=== PATIENT | male | born 1955 | race Caucasian/White ===

== ENCOUNTER → 2023-08-16 13:42 | Outpatient (REF) | payer OTHER, SELFPAY ==
--- NOTE | 2023-08-15 08:33 | WATCHMAN ---
Documented by User: STEPHANIE Kapoor 09/10/23 13:50
Watchman
Wathcman Procedure
Referred by:: Pierre
Date of Referral:: 08/03/23
[id number] Score
Age in Years (65=0, 65-74=1, >/=75=2): 65-74
Sex (Female=+1): Male
Congestive Heart Failure History (Yes=+1): No
Hypertension History (Yes=+1): Yes
Stroke/TIA/Thromboembolism History (Yes=+2): No
Vascular Disease History (Yes=+1): No
Diabetes Mellitus (Yes=+1): No
Score: 2
Anticoagulation Recommendations: Recommend anticoagulation (as validated in nonvalvular fib)
HASBLED Score
Hypertenstion (uncontrolled >160mmHG systolic): Yes
Renal disease (dialysis, transplant, Cr >2.26mg/dL or >200umol/L): No
Liver disease (cirrhosis or bilirubin >2x normal w/ AST/ALT/AP >3x normal: No
Stroke history: No
Prior major bleeding or predisposition to bleeding: Yes
Labile INR(unsable/high INRs,time in therapeutic range <60%): No
Age >65: Yes
Medication usage predisposing to bleeding(ASA, NSAIDS): No
Alcohol use (>/= 8 drinks/week): No
Score: 3
Risk: Alternatives to anticoagulation should be considered: Patient is at high risk for major bleeding
Physician Visits
Design Printing Machine Setter:: Pierre
Date of Visit:: 08/03/23
Primary Cleaning Associate:: Pierre
Date of Visit:: 08/03/23
PCP:: Venecia Hess
Plan
Plan:: 08/03/2023: Patient seen and evaluated by Dr. Jay for Watchman procedure.
08/06/2023: Patient asked to get BMP to assess kidney function prior to CT scan. Patient scheduled for watchman CT scan on 08/16/2023. Allowed for and answered questions.
08/15/2023: Labs completed and GFR is WNL. Lab results faxed to CT department.
09/04/2023: Reviewed patient with the heart team in the SDM meeting. The team discussed borderline anatomy and soft indication for watchman. Dr. Jay and Dr. Bowie will discuss plan of care with patient t/c ablation and OAC. Will continue to
follow.
09/10/2023: Updated patient on Heart Team discussion. Allowed for and answered questions. Will call to follow up with Dr. Bowie about ablation options.

Documented by User: STEPHANIE Morris 09/04/23 07:35
Watchman
[id number] Score
Score: 2
Anticoagulation Recommendations: Recommend anticoagulation (as validated in nonvalvular fib)
HASBLED Score
Score: 3
Risk: Alternatives to anticoagulation should be considered: Patient is at high risk for major bleeding
Plan
Plan:: 08/03/2023: Patient seen and evaluated by Dr. Jay for Watchman procedure.
08/06/2023: Patient asked to get BMP to assess kidney function prior to CT scan. Patient scheduled for watchman CT scan on 08/16/2023. Allowed for and answered questions.
08/15/2023: Labs completed and GFR is WNL. Lab results faxed to CT department.
09/04/2023: Reviewed patient with the heart team in the SDM meeting. The team discussed borderline anatomy and soft indication for watchman. Dr. Jay and Dr. Bowie will discuss plan of care with patient t/c ablation and OAC. Will continue to follow.
== END ==
LOC: RAD 13:42
PROVIDERS: ATTENDING PHYSICIAN Internal Medicine Interventional Cardiology; FAMILY PHYSICIAN Family Medicine
DX: I48.0 Paroxysmal atrial fibrillation (principal)
CPT/HCPCS: 75572; Q9967

== ENCOUNTER 2023-10-09 06:23 | Day surgery (SDC) | payer OTHER, SELFPAY ==
[2023-10-09] VITALS (10 sets, daily range): BP systolic 146–154; BP diastolic 81–92; BMI 26.3
[2023-10-09] MEDS: LOW STRENGTH ASPIRIN 324 MG PO (07:13)
[2023-10-09 08:18] LABS: ACT-LR - POC 287 Seconds (116-155)
--- NOTE | 2023-10-09 11:29 | ITS.CL.CATH ---
Blindstitch Lapel Padder - Catheterization
Cardiac Catheterization
Procedure Report:
LEFT HEART CATHETERIZATION
Date of Procedure: October 09, 2023
Referring: Vivienne Jay MD, [facility], [facility]
PROCEDURES:
1. Left heart catheterization, coronary angiogram.
2. Ultrasound-guided access
3. Physiologic functional testing with IFR
INDICATION: �Mr Chaves is a 67-year-old gentleman with past medical history of hypertension, hyperlipidemia, coronary artery disease status post OM1 stent in September 2020 with 2.5 x 18 mm Shalini Xience V drug-eluting stent postdilated using a 2.5 x 20
mm NC balloon to 14 judith, mild to moderate carotid artery stenosis, former tobacco abuse, synovial cyst in his back resulting in chronic back pain, cannabis dependence, paroxysmal atrial flutter on long-term anticoagulation with Eliquis�with
intermittent hemorrhoidal bleeds, mild aortic stenosis, significantly elevated coronary artery calcium score with ongoing exertional left-sided atypical chest discomfort now being referred for a left heart catheterization to rule out obstructive
CAD. He was being referred for a watchman and underwent a watchman protocol CT which coincidentally noted significantly elevated calcium score of 2307 with 1950 of that in the left coronary system and 365 in the right coronary system.
ACCESS: Right radial artery, 6 Green[place]ic sheath, under ultrasound guidance
HEMODYNAMICS : (mmHg)
AO (s/d) : 146/79
LV (s/d) : 164/7
LVEDP : 26
CORONARY FINDINGS
DOMINANCE: Right
LEFT MAIN: The left main artery is a large-caliber vessel which gives rise to the left anterior descending artery and the left circumflex artery. There is distal tapering up to 40 to 50% which is heavily calcified. This was interrogated using
physiologic functional testing with IFR which was negative at 0.93.
LEFT ANTERIOR DESCENDING: The left anterior descending artery is a medium to large caliber vessel which gives rise to 1 major diagonal branch as it courses through the anterior interventricular groove and wraps around the apex. There is mild
diffuse atherosclerotic plaque.
CIRCUMFLEX: The left circumflex artery is a medium to large caliber vessel which gives rise to 1 major obtuse marginal branch. Prior OM stent from 2020 is widely patent. There is 30-40% ostial left circumflex stenosis.
RIGHT CORONARY ARTERY: The right coronary artery is a medium caliber vessel which gives rise to the right posterior descending artery with minimal luminal irregularities.
HEMODYNAMIC ASSESSMENT OF THE DISTAL LEFT MAIN WITH A FinarioO OMNI WIRE: The origin of the left coronary system was cannulated with a 6 Fr JL4 guide catheter. Intravenous heparin was administered and the ACT was followed during the procedure. Two
hundred micrograms of intracoronary nitroglycerin was given through the guide catheter. A [place] Omni wire was advanced to the guide catheter tip and normalized in the ascending aorta with disengagement of the JL 4 guide catheter. The Omni wire
was then carefully manipulated across the stenosis in the distal left main with the iFR above the ischemic threshold serially measuring 0.94, 0.93 and 0.95. The Omni wire was then pulled back to the guide catheter where the Pd/Pa measured 1.0
confirming no baseline drift in pressure readings
SEDATION: 42 minutes of procedural sedation was utilized. An independent medical support assistant was present to assist with and help manage the patient's level of consciousness and physiologic status.
RADIATION SUMMARY: Fluoro Time (min): 5.5, Dose (mGy): 364.0, DAP (Gy.cm2) : 26.2
Closure Device: Vascular band over right radial artery, 10 cc of air.
CONCLUSIONS
1. Moderate coronary artery disease with IFR negative distal left main 40-50% stenosis (IFR of 0.93).
2. Widely patent obtuse marginal stent from 2020.
3. Significantly elevated LVEDP.
RECOMMENDATIONS
1. Goal-directed medical therapy for optimization of lipids and daily progression of obstructive coronary artery disease. Initiate low-dose diuretic given significantly elevated LVEDP.
2. Continued encouragement for smoking cessation.
3. He will keep his appointments as scheduled with pulmonary medicine as well as electrophysiology in regards to A-fib ablation.
4. Wean right radial band per protocol. Resume Eliquis starting tonight as long as no issues at the right radial site.
5. Aggressive management of cardiovascular risk factors.
Vivienne Jay MD, FACC, [facility]
== END 2023-10-09 11:30 | disposition home or self-care (01) ==
LOC: CATH 06:23
PROVIDERS: ATTENDING PHYSICIAN Internal Medicine Interventional Cardiology; FAMILY PHYSICIAN Family Medicine
DX: I35.0 Nonrheumatic aortic (valve) stenosis (principal); I48.0 Paroxysmal atrial fibrillation; I25.10 Atherosclerotic heart disease of native coronary artery without angina pectoris; Z95.5 Presence of coronary angioplasty implant and graft; I10 Essential (primary) hypertension; E78.5 Hyperlipidemia, unspecified; F12.21 Cannabis dependence, in remission; Z87.891 Personal history of nicotine dependence; Z79.01 Long term (current) use of anticoagulants
CPT/HCPCS: 99152; 99153; C1894; C1769; 76937; 85347; 93458; 93571; Q9967

== ENCOUNTER 2023-12-07 05:58 | Day surgery (SDC) | payer OTHER, SELFPAY ==
[2023-11-19 07:47] VITALS: BMI 25.5
[2023-11-19 08:37] LABS: % Basophils 0.8 % (0-2); % Eosinophils 4.9 % (0-6); % Immature Granulocytes 0.3 % (0-0.5); % Lymphocytes 24.3 % (20.5-51.1); % Monocytes 6.6 % (1.7-9.3); % Neutrophils 63.1 % (42.2-75.2); Absolute Basophils 0.1 10^3/uL (0-0.2); Absolute Eosinophils 0.4 10^3/uL (0-0.7); Absolute Lymphocytes 1.7 10^3/uL (1.2-3.4); Absolute Monocytes 0.5 10^3/uL (0.1-0.6); Absolute Neutrophils 4.5 10^3/uL (1.4-6.5); Hematocrit 42.9 % (39.0-52.0); Hemoglobin 14.7 g/dL (13.0-18.0); INR 1.25; Mean Corp Hgb Conc. 34.3 g/dL (33.0-37.0); Mean Corpuscular Hgb 31.6 pg (27.0-31.0); Mean Corpuscular Volume 92.3 fL (80.0-94.0); Mean Platelet Volume 9.4 fL (7.4-10.4); Nucleated Red Blood Cells % 0 % (-); PT 15.6 Sec (11.4-14.6); Platelet Count 274 10^3/uL (130-400); Red Blood Cell Count 4.65 10^6/uL (4.70-6.10); Red Cell Dist. Width 13.5 % (11.5-14.5); White Blood Cell Count 7.2 10^3/uL (4.8-10.8)
[2023-11-19 08:46] LABS: ALT (SGPT) 16 U/L (0-50); AST (SGOT) 22 U/L (17-59); Albumin 4.4 g/dl (3.5-5.0); Alkaline Phosphatase 59 U/L (38-126); Blood Urea Nitrogen 15 mg/dl (9-20); Calcium 9.8 mg/dl (8.4-10.2); Carbon Dioxide 31 mmol/L (22-30); Chloride 106 mmol/L (98-107); Estimated Creatinine Clearance 87 ml/min; Glucose 113 mg/dl (70-99); Magnesium 2.1 mg/dl (1.6-2.3); Potassium 4.1 mmol/L (3.5-5.1); Sodium 143 mmol/L (135-145); Total Bilirubin 0.5 mg/dl (0.2-1.3); Total Protein 7.3 g/dl (6.3-8.2); eGFR > 60.00
--- NOTE | 2023-11-20 16:54 | W.PN.UPDATE ---
Update Note
Progress Note Update
Pulmonary nodule on CT-faxed to PCP--LM for patient
[2023-12-07] VITALS (17 sets, daily range): BP systolic 138–198; BP diastolic 79–158; BMI 25.1
[2023-12-07] MEDS: ZESTRIL 20 MG PO (12:05)
[2023-12-07] MEDS: COREG 25 MG PO (12:05)
--- NOTE | 2023-12-07 12:23 | ITS.CL.ABL ---
Windows Desktop Engineer - Ablation
Ablation
Procedure Report:
Primary Insulator Helper: Vivienne Jay MD
Procedure Date: 12/07/2023
Procedure
Electrophysiology Study, with RA, CS pacing and recording
Radiofrequency Ablation of CTI for Counterclockwise Cavotricuspid Isthmus-dependent Right Atrial Flutter
Three-dimensional Electroanatomic Mapping and Navigation
Patient History
See H&P for complete details
Patient is a pleasant 68-year-old male with a past medical history significant for hypertension, LVH, mild aortic stenosis, CAD status post PCI September 2020, left carotid stenosis, chronic back pain, THC use, paroxysmal typical atrial flutter.
Patient presented for elective electrophysiology study and ablation for typical atrial flutter. Underwent preprocedure CT scan which demonstrated no left atrial appendage thrombus.
Method
After informed consent was obtained, the patient was brought to the EP lab in a post-absorptive, non-sedated state. A peripheral IV was in place. Continuous electrocardiography, blood pressure and pulse oximetry monitoring were initiated and
cardioversion / defibrillator patch electrodes were positioned on the chest in an anterior-posterior orientation. Sedation was administered via the anesthesia services. A time-out was called. Local anesthesia was administered at the right and left
femoral vein access sites. Vascular access was achieved using modified Seldinger technique, and 3 sheaths were placed.
The patient entered the room in sinus rhythm. A multipolar catheter were advanced to the coronary sinus. A mapping / ablation catheter was used to record and pace. Intracardiac ultrasound (ICE) was utilized for structural assessment and monitoring.
Tachycardia induction was attempted but unsuccessful. Three-dimensional electroanatomic mapping was utilized. Catheter ablation in the right atrium was performed as described below. Ablation continued until a line was complete from the
tricuspid valve annulus to the IVC-RA junction. Clockwise and counterclockwise trans-isthmus times were determined, and RA activation patterns confirmed bidirectional block (>50% increase in trans-isthmus time). Interval measurements in NSR were
made. A waiting period was observed, after which the procedure was concluded.
At the end of the procedure, all catheters and sheaths were removed, hemostasis was assured in the standard fashion, and the patient was taken to the recovery area in stable condition.
Baseline Intervals:
Rhythm: sinus rhythm
FL: 170 ms
QRS: 97 ms
QT: 441 ms
QTc: 426 ms
A-A: 1071 ms
R-R: 1071 ms
Post-Procedure Intervals:
FL: 172 ms
QRS: 83 ms
QT: 358 ms
QTc: 463 ms
A-A: 600 ms
R-R: 600 ms
AVWB: 430 ms
AVNERP: 600/270 ms
No arrhythmia was inducible post ablation
Mapping and Ablation
Utilizing electroanatomic three-dimensional navigation, a 3.5 mm tip Claim Map[employer]apse Wireless SE irrigated ablation catheter was advanced to the right atrium with the assistance of an11.5 Fr Agilis steerable long sheath. An electroanatomic three-dimensional map
of the right atrium was constructed, with careful attention to anatomic landmarks, including the coronary sinus, IVC-RA and SVC-RA junction, tricuspid valve annulus, and region of the His bundle electrogram. Due to respiratory obstruction and
significant respiratory variation during mapping, patient was placed under general anesthesia by anesthesia services to improve respiratory stability. On ICE, patient noted to have large/pronounced TA with short, deep crypt CTI and large prominent
eustachian ridge this was consistent medial to lateral.
An ablation line was created from the tricuspid annulus to the IVC in the 6:00 position ([place] clock). Power was titrated between 30 and 40 Adam. Careful monitoring of impedance and contact force during ablation. Patient remained in sinus rhythm
during procedure. The line was completed during CS pacing, and bidirectional block was achieved. The ablation line was mapped to ensure widely spaced double potentials, and after a minute waiting period, bidirectional block persisted. ICE imaging
demonstrated no change to pre-procedure imaging, no evidence of pericardial effusion.
Ablation Summary
Total ablation time: 7 minutes 19 seconds
Estimated Blood Loss
<5 mL
Fluoroscopy Time 2.2
Radiation Dose 6.4 mGy
DAP 0.9
Complications
None
Conclusions
1. Successful ablation of the cavotricuspid isthmus with bidirectional block.
2. No arrhythmia induced pre- or post procedure
Recommendations
- Anticipate discharge home today if meeting clinical metrics
- Bedrest with straight leg precautions for four hours
- Resume anticoagulation tonight if patient/groins stable
- Continue remaining home medications as indicated
- Follow-up in clinic in 4-6 weeks or sooner if needed
Tae Reveles,
Clinical Cardiac Electrophysiology
cc: Vivienne Jay MD; Venecia Hess MD
[2023-12-07] MEDS: PROCARDIA XL (EXTENDED RELEASE) 60 MG PO (15:56)
[2023-12-07] MEDS: PROCARDIA XL (EXTENDED RELEASE) 30 MG PO (15:57)
--- NOTE | 2023-12-07 16:16 | W.PN.UPDATE ---
Update Note
Progress Note Update
68 yo WM s/p CTI flutter ablation (same day). He feels good, no cp, sob, jorje diet, voiding, EKG SR, R fem site c/d/i, L fem site with slow track ooze even after F08 suture removed, continues to ooze. Dr. Reveles injected groin with 5cc Lidocaine/Epi
and manual pressure held for 20min. His bp has been running high, he was given his am meds and nifedipine. He will resume his Eliquis later tonight at 9pm. Activity restrictions reviewed. He will f/u Dr. Jay in 2 mo. We will monitor for any
further bleeding and d/c home after 5:30pm.
Procedure
Electrophysiology Study, with RA, CS pacing and recording
Radiofrequency Ablation of CTI for Counterclockwise Cavotricuspid Isthmus-dependent Right Atrial Flutter
Three-dimensional Electroanatomic Mapping and Navigation
Patient History
See H&P for complete details
Patient is a pleasant 68-year-old male with a past medical history significant for hypertension, LVH, mild aortic stenosis, CAD status post PCI September 2020, left carotid stenosis, chronic back pain, THC use, paroxysmal typical atrial flutter.
Patient presented for elective electrophysiology study and ablation for typical atrial flutter. Underwent preprocedure CT scan which demonstrated no left atrial appendage thrombus.
== END 2023-12-07 17:27 | disposition home or self-care (01) ==
LOC: CATH 05:58
PROVIDERS: ATTENDING PHYSICIAN Internal Medicine Cardiovascular Disease; FAMILY PHYSICIAN Family Medicine; OTHER PHYSICIAN Internal Medicine Interventional Cardiology
DX: I11.9 Hypertensive heart disease without heart failure (principal); I25.10 Atherosclerotic heart disease of native coronary artery without angina pectoris; I48.0 Paroxysmal atrial fibrillation; E78.5 Hyperlipidemia, unspecified; J84.10 Pulmonary fibrosis, unspecified; M48.00 Spinal stenosis, site unspecified; M19.90 Unspecified osteoarthritis, unspecified site; K76.0 Fatty (change of) liver, not elsewhere classified; G47.00 Insomnia, unspecified; R73.03 Prediabetes; Z79.01 Long term (current) use of anticoagulants
CPT/HCPCS: 93662; C2630; C1766; C1894; C1759; 36415; 75572; 76937; 80053; 83735; 85025; 85610; 86850; 86900; 86901; 93005; 93653; Q9967

== ENCOUNTER 2024-01-01 12:52 | Emergency (ER) | payer OTHER, SELFPAY ==
[2024-01-01] VITALS (15 sets, daily range): BP systolic 120–161; BP diastolic 72–110
[2024-01-01] MEDS: NSS 500 IV ×2 (14:16→15:52)
[2024-01-01 14:28] LABS: Hematocrit 48.5 % (39.0-52.0); Mean Corp Hgb Conc. 35.1 g/dL (33.0-37.0); Mean Corpuscular Hgb 32.1 pg (27.0-31.0); Mean Corpuscular Volume 91.7 fL (80.0-94.0); Mean Platelet Volume 9.7 fL (7.4-10.4); Platelet Count 227 10^3/uL (130-400); Red Blood Cell Count 5.29 10^6/uL (4.70-6.10); Red Cell Dist. Width 13.4 % (11.5-14.5); White Blood Cell Count 9.5 10^3/uL (4.8-10.8)
[2024-01-01] MEDS: CARDIZEM 20 MG IV (14:32)
[2024-01-01] MEDS: CARDIZEM 125 IV (14:32)
[2024-01-01 14:46] LABS: ALT (SGPT) 18 U/L (0-50); AST (SGOT) 26 U/L (17-59); Albumin 4.6 g/dl (3.5-5.0); Alkaline Phosphatase 58 U/L (38-126); Blood Urea Nitrogen 20 mg/dl (9-20); Calcium 10.2 mg/dl (8.4-10.2); Carbon Dioxide 24 mmol/L (22-30); Chloride 106 mmol/L (98-107); Glucose 102 mg/dl (70-99); Potassium 4.1 mmol/L (3.5-5.1); Sodium 140 mmol/L (135-145); Total Bilirubin 1.2 mg/dl (0.2-1.3); Total Protein 7.4 g/dl (6.3-8.2); eGFR > 60.00
--- NOTE | 2024-01-01 14:56 | ED.GENMED ---
History of Present Illness
General
Chief Complaint: Heart Rate Problem
Source: patient
Exam Limitations: none
Time Seen by Provider: 01/01/24 13:59
Nursing documentation reviewed up to this point in time: agreed with
History of Present Illness
History of Present Illness:
Patient with history atrial fibrillation on Eliquis, status post cardiac ablation on December 06, presents to ED secondary to recurrent chest 'pounding sensation', starting last night. Patient also reports associated dizziness with shortness of breath
when ambulating this morning. Denies nausea or vomiting. Denies chest pain. Denies fever or chills. Denies recent change in medications or diet. Denies recent illness. Patient states that he feels as though he is back in atrial fibrillation
rhythm.
Past History
Past History
ED Past Medical History: CAD, HTN, Hypercholesterolemia, Other and Other
ED Past Surgical History: Cardiac and Other
Patient has exhibited threatening behavior?: No
PSI?: No
Social History
Tobacco: Non-smoker
Alcohol: Occasional
Drug: Marijuana
Personal:
Living: with family
Employment: Retired
Family History
Family History: CAD
Review of Systems
Review of Systems
Allergies reviewed?: Yes
All Other Systems: ROS reviewed and negative except as documented in HPI and ROS
Constitutional: Reports no symptoms
EENT: Reports no symptoms
Respiratory: Reports trouble breathing
Cardiac: Reports palpitations; Denies chest pain or syncope
ABD/GI: Reports no symptoms
Musculoskeletal: Reports no symptoms
Skin: Reports no symptoms
Neurological: Reports dizzy; Denies headache or weakness
Phy Exam
Physical Exam
Physical Exam:
Physical Exam
General: no apparent distress, not acutely ill. afebrile.
Head: nc/at. eomi
Neck: supple. no meningeal signs.
Heart: irregular, tachycardic, no murmur. equal radial pulses.
Lungs: no acute respiratory distress. clear bilaterally
Abdomen: normal bowel sounds. not tender.
Neuro: alert and oriented. no focal neurological deficits
Skin: no rash
Psychiatric: well kept. interactive and cooperative
Extremities: no edema. no calf tenderness.
Course
Orders/Labs/Results
Orders:
Orders
01/01/24
Electrocardiogram (*1) Stat
Reason for Study: Chest Pain
Comment: DONE NO ORDER ENTERED
01/01/24 12:56
Electrocardiogram (*1) Urgent
Reason for Study: Chest Pain
EKG- Treatment ONCE
01/01/24 14:08
0.9% Sodium Chloride 500 ml [Nss] 500 ml IV BOLUS
01/01/24 14:09
Diltiazem HCl [Cardizem] 20 mg IV NOW STA
01/01/24 14:15
Complete Blood Count/No Diff Urgent
Comprehensive Metabolic Panel Urgent
Magnesium Urgent
TSH Urgent
Diltiazem 125 mg/125 ml Nss [Cardizem] 125 mg in 125 ml IV PER PROTOCOL
Initial dose in mg/hr, then titrate:: 5
Titrate to keep:: Heart rate 80-100 bpm
Titrate by mg/hr:: 5 mg/hr
Frequency of titrations (minutes):: 15
Maximum dose in mg/hr:: 15
01/01/24 15:14
Electrocardiogram (*1) Urgent
Reason for Study: QTc Monitoring
EKG- Treatment ONCE
01/01/24 15:43
Propofol [Diprivan] 20 ml .ROUTE .STK-MED
01/01/24 15:52
0.9% Sodium Chloride 500 ml [Nss] 500 ml IV BOLUS
01/01/24 15:53
Propofol [Diprivan] 60 mg IV NOW STA
01/01/24 16:22
Electrocardiogram (*1) Urgent
Reason for Study: QTc Monitoring
EKG- Treatment ONCE
Abnormal Lab Results
01/01/24
14:15
MCH 32.1 H pg
(27.0-31.0)
Glucose 102 H mg/dl
(70-99)
01/01/24 14:15
01/01/24 14:15
Vital Signs
Initial and Last Documented VS:
Initial Vital Signs
Temp Pulse Resp BP Pulse Ox
98.2 F 105 20 159/110 96
01/01/24 12:53 01/01/24 12:53 01/01/24 12:53 01/01/24 12:53 01/01/24 12:53
Last Documented Vital Signs
Temp Pulse Resp BP Pulse Ox
98.3 F 71 15 145/82 94
01/01/24 15:53 01/01/24 17:00 01/01/24 17:00 01/01/24 17:00 01/01/24 17:00
Procedures
Moderate Sedation
ASA Risk Score: Class I
Chart and allergies reviewed: Yes
Consent for anesthesia obtained: Yes
Time out completed (validating right patient & procedure): Yes
Moderate Sedation Start Time(when first medication is given): 15:53
History of difficult intubation: No
Airway free of obstruction: Yes
Patient has a gag reflex: Yes
Patient is able to open mouth: Yes
Patient has no dentures: Yes
Patient has no loose teeth: Yes
Medication administered by Provider during Moderate Sedation: IV Propofol (mg)
Total dose administered: 60
Time drug administered: 15:53
Moderate Sedation Procedure End Time: 16:03
Cardioversion
Indication:: Other (rapid a.flutter)
Performed by:: Donte Díaz M.D.
Synchronized?: Yes
Energy Used: 200 joules
Number of attempts: 1
Successful?: Yes
Complications: None
ASA Risk Score: Class I
Any reaction or bad outcome to prior sedation/anesthesia?: No history of a reaction
Sedation level to be attained: moderate
Chart and allergies reviewed: Yes
Patient reassessed prior to sedation: Yes
Time out completed at (validating right patient & procedure): 15:53
History of difficult intubation: No
Airway free of obstruction: Yes
Patient has a gag reflex: Yes
Patient is able to open mouth: Yes
Patient has no dentures: Yes
Patient has no loose teeth: Yes
Medication administered by Provider during Moderate Sedation: IV Propofol (mg)
Total dose administered: 60
Time drug administered: 15:53
Start Time: 15:53
Stop Time: 16:03
MDM/Problems Addressed
MDM/Problems Addressed:
History and exam consistent with symptomatic rapid atrial flutter. Patient initially treated with IV fluids, Cardizem bolus and Cardizem infusion. Unfortunately, although heart rate improved, patient remains in atrial flutter rhythm.
After discussion, decision made to perform cardioversion.
Procedural consent on the chart.
Cardioversion successful, confirmed via repeat EKG.
Discussed with (cardiology) - will f/u as outpatient.
Pt will be discharged home in stable condition, to the care of his family.
ED Attending Note
-
Portions of this chart may have been created with voice recognition software.� Occasional wrong word or��sound alike� substitutions may have occurred due to the inherent limitations of voice recognition software.
Discharge Plan
Departure
Patient Disposition: Home (Routine Discharge)
Date of Disposition: 01/01/24
Time of Disposition: 16:04
Patient with high blood pressure during this ER visit?: Yes
Discharge Problem:
Atrial flutter with rapid ventricular response
Instructions: Atrial Flutter (DC)
Prescriptions:
No Action
carvedilol [Coreg] 25 MG tablet
25 mg PO BID
lisinopril 20 MG tablet
20 mg PO BID
sildenafil [Viagra] 50 MG tablet
50 mg PO DAILYPRN PRN (Reason: as needed) Qty: 0 0RF
Eliquis 5 mg tablet
5 mg PO BID Qty: 20 1RF
acetaminophen [Tylenol] 325 mg Tablet
650 mg PO Q4H PRN (Reason: pain)
melatonin 5 mg Tablet
5 mg PO HS PRN (Reason: sleep)
CoQ-10
1 dose PO DAILY
atorvastatin 80 mg Tablet
80 mg PO DAILY
nifedipine 90 mg tablet extended release 24hr
90 mg PO DAILY Qty: 90 3RF
furosemide 20 mg tablet
20 mg PO DAILY Qty: 90 3RF
Referrals:
Venecia Hess MD [Family Provider] -
Activity Restrictions/Additional Instructions:
As discussed, please follow-up with your primary care physician and/or biometric technician for reevaluation.
Interventions
Interventions:
*Risk Screen - Suicide Last Done: 01/01/24 12:53
*General Assessment Last Done: 01/01/24 12:53
*Neglect/Abuse Screening Last Done: 01/01/24 12:53
ED- Fall Risk Assessment Last Done: 01/01/24 14:37
*ED COVID-19 Vaccine History Last Done: 01/01/24 17:43
*Nursing Disposition Last Done: 01/01/24 17:43
ED- Cardiac Assessment Last Done: 01/01/24 13:42
ED- Pulmonary Assessment Last Done: 01/01/24 13:42
Discharge Date and Time
Discharge Date/Time: 01/01/24 17:43
Print Language: [place]
[2024-01-01 15:15] LABS: TSH 1.97 uIU/ml (0.47-4.68)
[2024-01-01] MEDS: DIPRIVAN 60 MG IV (15:53)
== END 2024-01-01 17:43 | disposition home or self-care (01) ==
LOC: EMR 12:52
PROVIDERS: EMERGENCY PHYSICIAN Emergency Medicine; FAMILY PHYSICIAN Family Medicine
DX: R42 Dizziness and giddiness (principal); R06.02 Shortness of breath; I48.92 Unspecified atrial flutter; I48.91 Unspecified atrial fibrillation; I25.10 Atherosclerotic heart disease of native coronary artery without angina pectoris; I10 Essential (primary) hypertension; E78.00 Pure hypercholesterolemia, unspecified; J42 Unspecified chronic bronchitis; Z79.01 Long term (current) use of anticoagulants; Z87.891 Personal history of nicotine dependence; Z86.16 Personal history of COVID-19
CPT/HCPCS: 92960; 99285; 96365; 96361; 99152; 80053; 83735; 84443; 85027; 93005

== ENCOUNTER → 2024-01-02 09:00 | Outpatient (REF) | payer OTHER, SELFPAY | LOC: DHSLP 09:00 | PROVIDERS: ATTENDING PHYSICIAN Internal Medicine Critical Care Medicine; FAMILY PHYSICIAN Family Medicine | DX: G47.30 Sleep apnea, unspecified (principal); R06.83 Snoring | CPT/HCPCS: 95800 ==

== ENCOUNTER → 2024-02-18 10:02 | Outpatient (REF) | payer OTHER, SELFPAY | LOC: RAD 10:02 | PROVIDERS: ATTENDING PHYSICIAN Internal Medicine Critical Care Medicine; FAMILY PHYSICIAN Family Medicine | DX: R91.1 Solitary pulmonary nodule (principal) | CPT/HCPCS: 71250 ==

== ENCOUNTER 2024-04-29 10:27 | Emergency (ER) | payer OTHER, SELFPAY ==
[2024-04-29] VITALS (17 sets, daily range): BP systolic 137–212; BP diastolic 87–127; BMI 25.7
--- NOTE | 2024-04-29 10:35 | ED.GENMED ---
ED Provider Triage
<Gianna Restrepo PA-C - Last Filed: 04/29/24 10:39>
-
Patient seen by provider in Triage?: Seen in Triage
Attestation: A medical screening examination has been initiated by a qualified medical provider. Based on the assessment performed at this time, it has been determined that an emergent medical condition may exist and the patient has been informed
that further medical evaluation and possible additional diagnostic testing may be needed.
HPI: 68yoM here with palpitations. Started last night. Feels like he is in afib again. Currently sick with bronchitis. Went to urgent care 5 days ago and prescribed amoxicillin and benzonatate. Had an ablation and 2 cardioversions in the past.
GENERAL: Alert , in no apparent distress
EYE: No visual abnormalities.
NECK: Trachea midline
ENT: No visible abnormalities.
LUNGS: No acute respiratory distress
NEUROLOGICAL: Alert and oriented
SKIN: Skin intact. No visible changes.
MUSCULOSKELETAL: Moving extremities normally
PSYCH: Normal and appropriate interaction.
This is a medical evaluation conducted in person to initiate diagnostic evaluation and provide initial therapeutics. Please see further documentation by the treating clinician.
Cardiac labs, magnesium, EKG, and CXR ordered.
History of Present Illness
<Gianna Restrepo PA-C - Last Filed: 04/29/24 10:39>
General
Chief Complaint: Heart Rate Problem
Time Seen by Provider: 04/29/24 11:27
<Brandyn Alvarado PA-C - Last Filed: 04/29/24 16:03>
History of Present Illness
History of Present Illness:
68-year-old male presents the emergency department for evaluation of lightheadedness and heart palpitations for the past 2 days. Used his [employer] mobile at home and noted that he was in A-fib. History of A-fib status post ablation, has required
cardioversion in the past. Has been compliant with his Eliquis. Reports for the past week or more he has had a productive cough, took a course of amoxicillin without complete improvement. Non-smoker.
Past History
<Gianna Restrepo PA-C - Last Filed: 04/29/24 10:39>
Past History
ED Past Medical History: CAD, HTN, Hypercholesterolemia, Other and Other
ED Past Surgical History: Cardiac and Other
Patient has exhibited threatening behavior?: No
PSI?: No
Social History
Tobacco: Non-smoker
Alcohol: Occasional
Drug: Marijuana
Personal:
Living: with family
Employment: Retired
Family History
Family History: CAD
Review of Systems
<Brandyn Alvarado PA-C - Last Filed: 04/29/24 16:03>
Review of Systems
Allergies reviewed?: Yes
All Other Systems: ROS reviewed and negative except as documented in HPI and ROS
Phy Exam
<Brandyn Alvarado PA-C - Last Filed: 04/29/24 16:03>
Physical Exam
Physical Exam:
GEN: Well appearing, NAD, WDWN
Eyes: PERRLA, EOMs intact, no scleral icterus
HENT: NCAT, oral mucosa moist, no JVD, no cervical adenopathy.
Lungs: Normal respiratory effort, coarse expiratory wheezes throughout all lung butt
Cardiac: Irregular and tachycardic
Neuro: AO x 3
MSK: No gross deformity or ecchymosis. No edema. No digital clubbing
Skin: No rashes, petechiae. Normal color, no pallor or jaundice.
Psych: Calm, cooperative, proper hygiene
Course
<Gianna Restrepo PA-C - Last Filed: 04/29/24 10:39>
Orders/Labs/Results
Orders:
Orders
04/29/24 10:35
EKG [Electrocardiogram (*1)] Urgent
Reason for Study: Atrial Fibrillation
EKG- Treatment ONCE
04/29/24 10:39
CR Chest - 2 Views Urgent
Comment:
Reason For Exam: Cough
04/29/24 10:42
Complete Blood Count/With Diff Urgent
Comprehensive Metabolic Panel Urgent
Magnesium Urgent
Troponin I Urgent
04/29/24 13:02
Propofol [Diprivan] 20 ml .ROUTE .STK-MED
04/29/24 13:09
EKG [Electrocardiogram (*1)] Urgent
Reason for Study: Other
Other Reason for Exam: post cardioversion
04/29/24 13:10
EKG- Treatment ONCE
04/29/24 13:18
Echo 2D MMode Color/Doppler Urgent
Reason for Study: elevated troponin
Cardiology Consult: Tree Coyne
Abnormal Lab Results
04/29/24
10:42
Abs Immat Gran (auto) 0.1 H 10^3/uL
(0-0.05)
Immature Gran % 0.6 H %
(0-0.5)
Glucose 175 H mg/dl
(70-99)
Troponin I 0.137 H* ng/ml
04/29/24 10:42
04/29/24 10:42
Vital Signs
Initial and Last Documented VS:
Initial Vital Signs
Temp Pulse Resp BP Pulse Ox
97.8 F 69 16 150/92 98
04/29/24 10:32 04/29/24 10:32 04/29/24 10:32 04/29/24 10:32 04/29/24 10:32
Last Documented Vital Signs
Temp Pulse Resp BP Pulse Ox
98.4 F 75 16 148/96 96
04/29/24 13:36 04/29/24 13:36 04/29/24 13:36 04/29/24 13:36 04/29/24 13:36
<Brandyn Alvarado PA-C - Last Filed: 04/29/24 16:03>
Orders/Labs/Results
Orders:
Orders
04/29/24 10:35
EKG [Electrocardiogram (*1)] Urgent
Reason for Study: Atrial Fibrillation
EKG- Treatment ONCE
04/29/24 10:39
CR Chest - 2 Views Urgent
Comment:
Reason For Exam: Cough
04/29/24 10:42
Complete Blood Count/With Diff Urgent
Comprehensive Metabolic Panel Urgent
Magnesium Urgent
Troponin I Urgent
04/29/24 13:02
Propofol [Diprivan] 20 ml .ROUTE .STK-MED
04/29/24 13:09
EKG [Electrocardiogram (*1)] Urgent
Reason for Study: Other
Other Reason for Exam: post cardioversion
04/29/24 13:10
EKG- Treatment ONCE
04/29/24 13:18
Echo 2D MMode Color/Doppler Urgent
Reason for Study: elevated troponin
Cardiology Consult: Tree Coyne
Abnormal Lab Results
04/29/24
10:42
Abs Immat Gran (auto) 0.1 H 10^3/uL
(0-0.05)
Immature Gran % 0.6 H %
(0-0.5)
Glucose 175 H mg/dl
(70-99)
Troponin I 0.137 H* ng/ml
04/29/24 10:42
04/29/24 10:42
Vital Signs
Initial and Last Documented VS:
Initial Vital Signs
Temp Pulse Resp BP Pulse Ox
97.8 F 69 16 150/92 98
04/29/24 10:32 04/29/24 10:32 04/29/24 10:32 04/29/24 10:32 04/29/24 10:32
Last Documented Vital Signs
Temp Pulse Resp BP Pulse Ox
98.4 F 75 16 148/96 96
04/29/24 13:36 04/29/24 13:36 04/29/24 13:36 04/29/24 13:36 04/29/24 13:36
<Ivan Catalan, DO - Last Filed: 04/29/24 15:03>
Orders/Labs/Results
Orders:
Orders
04/29/24 10:35
EKG [Electrocardiogram (*1)] Urgent
Reason for Study: Atrial Fibrillation
EKG- Treatment ONCE
04/29/24 10:39
CR Chest - 2 Views Urgent
Comment:
Reason For Exam: Cough
04/29/24 10:42
Complete Blood Count/With Diff Urgent
Comprehensive Metabolic Panel Urgent
Magnesium Urgent
Troponin I Urgent
04/29/24 13:02
Propofol [Diprivan] 20 ml .ROUTE .STK-MED
04/29/24 13:09
EKG [Electrocardiogram (*1)] Urgent
Reason for Study: Other
Other Reason for Exam: post cardioversion
04/29/24 13:10
EKG- Treatment ONCE
04/29/24 13:18
Echo 2D MMode Color/Doppler Urgent
Reason for Study: elevated troponin
Cardiology Consult: Tree Coyne
Abnormal Lab Results
04/29/24
10:42
Abs Immat Gran (auto) 0.1 H 10^3/uL
(0-0.05)
Immature Gran % 0.6 H %
(0-0.5)
Glucose 175 H mg/dl
(70-99)
Troponin I 0.137 H* ng/ml
04/29/24 10:42
04/29/24 10:42
Vital Signs
Initial and Last Documented VS:
Initial Vital Signs
Temp Pulse Resp BP Pulse Ox
97.8 F 69 16 150/92 98
04/29/24 10:32 04/29/24 10:32 04/29/24 10:32 04/29/24 10:32 04/29/24 10:32
Last Documented Vital Signs
Temp Pulse Resp BP Pulse Ox
98.4 F 75 16 148/96 96
04/29/24 13:36 04/29/24 13:36 04/29/24 13:36 04/29/24 13:36 04/29/24 13:36
Procedures
<Ivan Catalan, DO - Last Filed: 04/29/24 15:03>
Moderate Sedation
ASA Risk Score: Class II
Chart and allergies reviewed: Yes
Consent for anesthesia obtained: Yes
Time out completed (validating right patient & procedure): Yes
Moderate Sedation Start Time(when first medication is given): 13:04
History of difficult intubation: No
Airway free of obstruction: Yes
Patient has a gag reflex: Yes
Patient is able to open mouth: Yes
Patient has no dentures: Yes
Patient has no loose teeth: Yes
Medication administered by Provider during Moderate Sedation: IV Propofol (mg)
Total dose administered: 60
Time drug administered: 13:05
Moderate Sedation Procedure End Time: 13:15
Cardioversion
Indication:: Afib
Performed by:: Hossein/Christiano
Synchronized?: Yes
Energy Used: 150 joules
Number of attempts: 1
Successful?: Yes
ASA Risk Score: Class II
Any reaction or bad outcome to prior sedation/anesthesia?: No history of a reaction
Sedation level to be attained: moderate
Chart and allergies reviewed: Yes
Patient reassessed prior to sedation: Yes
Time out completed at (validating right patient & procedure): 13:04
History of difficult intubation: No
Airway free of obstruction: Yes
Patient has a gag reflex: Yes
Patient is able to open mouth: Yes
Patient has no dentures: Yes
Patient has no loose teeth: Yes
Medication administered by Provider during Moderate Sedation: IV Propofol (mg)
Total dose administered: 60
Time drug administered: 13:05
Start Time: 13:05
Stop Time: 13:15
<Brandyn Alvarado PA-C - Last Filed: 04/29/24 16:03>
MDM/Problems Addressed
MDM/Problems Addressed:
Patient arrives with acute bronchitis and secondarily rapid atrial fibrillation. He was cardioverted for his A-fib which was successful without complications. Initial labs prior to cardioversion revealed a markedly elevated troponin despite his
lack of chest pain or shortness of breath, I consulted cardiology and an echocardiogram was obtained. Patient remained stable with no symptoms after cardioversion. Will treat with a course of corticosteroids for his bronchitis, chest x-ray was
negative
<Brandyn Alvarado PA-C - Last Filed: 04/29/24 16:03>
*Critical Care Note
Total Time (30-74mins, 75-104mins- exclusive of procedures): Not Applicable
ED Attending Note
<Gianna Restrepo PA-C - Last Filed: 04/29/24 10:39>
-
Portions of this chart may have been created with voice recognition software.� Occasional wrong word or��sound alike� substitutions may have occurred due to the inherent limitations of voice recognition software.
<Ivan Catalan DO - Last Filed: 04/29/24 15:03>
ED Attending Note
Patient seen and examined by attending physician: Yes
ED Attending Note:
I have reviewed and agree with history and treatment plan by Zack Alvarado. My exam revealed 68-year-old male in rapid atrial fibrillation. Patient improved after cardioversion. Mild troponin elevation of unclear etiology. Dr. Coyne to perform echo.
Discharge Plan
Departure
Patient Disposition: Home (Routine Discharge)
Date of Disposition: 04/29/24
Time of Disposition: 16:02
Patient with high blood pressure during this ER visit?: No
Discharge Problem:
Atrial flutter with rapid ventricular response, Bronchitis
Instructions: Atrial Fibrillation (DC), Acute bronchitis, MODERATE SEDATION ADULT
Prescriptions:
New
prednisone 20 mg tablet
40 mg PO DAILY 5 Days Qty: 10 0RF
No Action
carvedilol [Coreg] 25 MG tablet
25 mg PO BID
lisinopril 20 MG tablet
20 mg PO BID
acetaminophen [Tylenol] 325 mg Tablet
650 mg PO Q4HPRN PRN (Reason: mild pain)
atorvastatin 80 mg Tablet
80 mg PO QPM
Patient Comments:
04/29/24-patient using an old bottle of 40mg (x2td) before he refils his 80mg tablets
nifedipine [Nifedical XL] 30 mg Tablet Extended Release 24hr
30 mg PO TID
benzonatate 100 mg Capsule
100 mg PO TIDPRN PRN (Reason: cough)
amoxicillin-pot clavulanate [Augmentin] 875-125 mg Tablet
1 tab PO BID
furosemide 20 mg tablet
20 mg PO DAILY
Eliquis 5 mg tablet
5 mg PO BID
Referrals:
Venecia Hess MD [Family Provider] -
Interventions
Interventions:
*Risk Screen - Suicide Last Done: 04/29/24 10:32
*General Assessment Last Done: 04/29/24 10:32
*Neglect/Abuse Screening Last Done: 04/29/24 10:32
ED- Fall Risk Assessment Last Done: 04/29/24 13:27
*ED COVID-19 Vaccine History Last Done: 04/29/24 11:54
ED- Cardiac Assessment Last Done: 04/29/24 11:20
ED- Pulmonary Assessment Last Done: 04/29/24 11:20
Discharge Date and Time
Print Language: SYRIAC
[2024-04-29 10:53] LABS: % Basophils 0.7 % (0-2); % Eosinophils 4.1 % (0-6); % Immature Granulocytes 0.6 % (0-0.5); % Lymphocytes 25.9 % (20.5-51.1); % Monocytes 5.3 % (1.7-9.3); % Neutrophils 63.4 % (42.2-75.2); Absolute Basophils 0.1 10^3/uL (0-0.2); Absolute Eosinophils 0.4 10^3/uL (0-0.7); Absolute Immature Granulocytes 0.1 10^3/uL (0-0.05); Absolute Lymphocytes 2.5 10^3/uL (1.2-3.4); Absolute Monocytes 0.5 10^3/uL (0.1-0.6); Absolute Neutrophils 6.1 10^3/uL (1.4-6.5); Hematocrit 43.4 % (39.0-52.0); Hemoglobin 15.5 g/dL (13.0-18.0); Mean Corp Hgb Conc. 35.7 g/dL (33.0-37.0); Mean Corpuscular Volume 86.8 fL (80.0-94.0); Mean Platelet Volume 9.1 fL (7.4-10.4); Nucleated Red Blood Cells % 0 % (-); Platelet Count 282 10^3/uL (130-400); Red Cell Dist. Width 12.5 % (11.5-14.5); White Blood Cell Count 9.6 10^3/uL (4.8-10.8)
[2024-04-29 11:07] LABS: ALT (SGPT) 17 U/L (0-50); AST (SGOT) 24 U/L (17-59); Albumin 4.4 g/dl (3.5-5.0); Alkaline Phosphatase 44 U/L (38-126); Blood Urea Nitrogen 19 mg/dl (9-20); Calcium 9.7 mg/dl (8.4-10.2); Carbon Dioxide 26 mmol/L (22-30); Chloride 103 mmol/L (98-107); Glucose 175 mg/dl (70-99); Magnesium 1.8 mg/dl (1.6-2.3); Potassium 4.1 mmol/L (3.5-5.1); Sodium 143 mmol/L (135-145); Total Bilirubin 0.7 mg/dl (0.2-1.3); Total Protein 7.2 g/dl (6.3-8.2); eGFR > 60.00
[2024-04-29 11:21] LABS: Troponin I 0.137 ng/ml
== END 2024-04-29 16:18 | disposition home or self-care (01) ==
LOC: EMR 10:27
PROVIDERS: Physician Assistant; EMERGENCY PHYSICIAN Emergency Medicine; FAMILY PHYSICIAN Family Medicine
DX: I48.92 Unspecified atrial flutter (principal); J20.9 Acute bronchitis, unspecified; I25.10 Atherosclerotic heart disease of native coronary artery without angina pectoris; I10 Essential (primary) hypertension; E78.00 Pure hypercholesterolemia, unspecified; I48.91 Unspecified atrial fibrillation; Z79.01 Long term (current) use of anticoagulants
CPT/HCPCS: 92960; 99156; 99285; 71046; 80053; 83735; 84484; 85025; 93005; 93306

== ENCOUNTER 2024-08-07 06:34 | Day surgery (SDC) | payer OTHER, SELFPAY | END 2024-08-07 10:22 | disposition home or self-care (01) | LOC: GI 06:34 | PROVIDERS: ATTENDING PHYSICIAN Internal Medicine | DX: Z12.11 Encounter for screening for malignant neoplasm of colon (principal); K57.30 Diverticulosis of large intestine without perforation or abscess without bleeding; K64.9 Unspecified hemorrhoids; D12.2 Benign neoplasm of ascending colon; D12.5 Benign neoplasm of sigmoid colon; Z86.0101 Personal history of adenomatous and serrated colon polyps | CPT/HCPCS: 45385; 45380; 88305 ==

== ENCOUNTER 2024-09-28 14:22 | Emergency (ER) | payer OTHER, SELFPAY ==
[2024-09-28] VITALS (15 sets, daily range): BP systolic 103–157; BP diastolic 57–89; BMI 24.5
[2024-09-28 15:28] LABS: % Basophils 0.5 % (0-2); % Eosinophils 0.8 % (0-6); % Immature Granulocytes 0.3 % (0-0.5); % Lymphocytes 26.3 % (20.5-51.1); % Monocytes 7.6 % (1.7-9.3); % Neutrophils 64.5 % (42.2-75.2); Absolute Eosinophils 0.1 10^3/uL (0-0.7); Absolute Lymphocytes 2.3 10^3/uL (1.2-3.4); Absolute Monocytes 0.7 10^3/uL (0.1-0.6); Absolute Neutrophils 5.6 10^3/uL (1.4-6.5); Hematocrit 45.6 % (39.0-52.0); Hemoglobin 16.3 g/dL (13.0-18.0); Mean Corp Hgb Conc. 35.7 g/dL (33.0-37.0); Mean Corpuscular Hgb 31.8 pg (27.0-31.0); Mean Corpuscular Volume 89.1 fL (80.0-94.0); Nucleated Red Blood Cells % 0 % (-); Platelet Count 193 10^3/uL (130-400); Red Blood Cell Count 5.12 10^6/uL (4.70-6.10); Red Cell Dist. Width 12.5 % (11.5-14.5); White Blood Cell Count 8.7 10^3/uL (4.8-10.8)
--- NOTE | 2024-09-28 15:31 | ED.GENMED ---
History of Present Illness
General
Chief Complaint: Heart Rate Problem
Time Seen by Provider: 09/28/24 15:04
History of Present Illness
History of Present Illness:
69-year-old male with history of A-fib on Eliquis and hypertension presenting to the emergency department for concern of A-fib. Patient felt himself going to A-fib yesterday. Notes that last time he was in A-fib was in May. He follows with
cardiology and has had ablations in the past. He notes dyspnea, particular with exertion and going up stairs. Denies chest pain. Denies abdominal pain or GI symptoms. Does note history of cardioversion in the past. Notes compliance with his
Eliquis. Denies additional acute medical complaints
Past History
Past History
ED Past Medical History: CAD, HTN, Hypercholesterolemia, Other and Other
ED Past Surgical History: Cardiac and Other
Patient has exhibited threatening behavior?: No
PSI?: No
Social History
Tobacco: Non-smoker
Alcohol: Occasional
Drug: Marijuana
Personal:
Living: with family
Employment: Retired
Family History
Family History: CAD
Phy Exam
Physical Exam
Physical Exam:
General: Well-appearing, no clinical signs of dehydration, nontoxic and in no acute distress
HEENT: protecting airway
Neck: appears supple
CV: Normal heart rate, irregular irregular rhythm, no evidence of cyanosis
Resp: No accessory muscle use, no increased work of breathing, lungs clear to auscultation bilaterally
Abd: No distention
Extremities: No deformities, no swelling
Neuro: alert, no focal neurologic deficit
: deferred
Rectal: deferred
Psych: Normal affect
Skin: Intact
Course
Orders/Labs/Results
Orders:
Orders
09/28/24 14:23
EKG [Electrocardiogram (*1)] Urgent
Reason for Study: Atrial Fibrillation
09/28/24 14:24
EKG- Treatment ONCE
09/28/24 15:20
Complete Blood Count/With Diff Urgent
Comprehensive Metabolic Panel Urgent
Magnesium Urgent
09/28/24 15:35
Propofol [Diprivan] 20 ml .ROUTE .STK-MED
Abnormal Lab Results
09/28/24
15:20
MCH 31.8 H pg
(27.0-31.0)
Absolute Monos (auto) 0.7 H 10^3/uL
(0.1-0.6)
Carbon Dioxide 21 L mmol/L
(22-30)
BUN 33 H mg/dl
(9-20)
Creatinine 1.5 H mg/dL
(0.7-1.3)
Glucose 128 H mg/dl
(70-99)
09/28/24 15:20
09/28/24 15:20
Vital Signs
Initial and Last Documented VS:
Initial Vital Signs
Temp Pulse Resp BP Pulse Ox
97.5 F 81 18 136/88 97
09/28/24 14:24 09/28/24 14:24 09/28/24 14:24 09/28/24 14:24 09/28/24 14:24
Last Documented Vital Signs
Temp Pulse Resp BP Pulse Ox
98 F 73 17 117/67 97
09/28/24 15:53 09/28/24 16:10 09/28/24 16:10 09/28/24 16:10 09/28/24 16:10
Procedures
Cardioversion
Indication:: Afib
Performed by:: Citlalli Jones DO
Synchronized?: Yes
Energy Used: 200 joules
Number of attempts: 1
Successful?: Yes
Complications: none
ASA Risk Score: Class II
Any reaction or bad outcome to prior sedation/anesthesia?: No history of a reaction
Sedation level to be attained: moderate
Chart and allergies reviewed: Yes
Patient reassessed prior to sedation: Yes
Time out completed at (validating right patient & procedure): 15:53
History of difficult intubation: No
Airway free of obstruction: Yes
Patient has a gag reflex: Yes
Patient is able to open mouth: Yes
Patient has no dentures: Yes
Patient has no loose teeth: Yes
Medication administered by Provider during Moderate Sedation: IV Propofol (mg)
Total dose administered: 50
Time drug administered: 15:53
Start Time: 15:53
Stop Time: 16:08
MDM/Problems Addressed
MDM/Problems Addressed:
69-year-old male with history of A-fib presenting for concern of A-fib. Vital signs are normal
On exam patient is resting comfortably, no acute distress. EKG confirms A-fib, suspected source of patient's dyspnea. Also notes palpitations. Patient reports compliance with his Eliquis, no missed doses. He has been cardioverted in the past and
is preferring cardioversion due to his symptoms. Will consent in screening laboratory analysis and plan for cardioversion
16:10 - Patient cardioverted without issue. Please see procedure note. Feel stable for discharge and outpatient cardiology follow-up, once off sedation and able to ambulate.
*EKG
Interpreted by ED Provider?: Yes
EKG Intrepretation Date: 09/28/24
EKG Intrepretation Time: 15:33
Interpretation: normal
Comparison EKG: changes noted (11/10/24)
Heart Rate: 99
Rate: normal
Rhythm: a-fib
[place]: normal axis
QRS Pattern: normal QRS
Ischemia: no ischemia
*Critical Care Note
Total Time (30-74mins, 75-104mins- exclusive of procedures): Not Applicable
ED Attending Note
-
Portions of this chart may have been created with voice recognition software.� Occasional wrong word or��sound alike� substitutions may have occurred due to the inherent limitations of voice recognition software.
Discharge Plan
Departure
Prescriptions:
No Action
carvedilol [Coreg] 25 MG tablet
25 mg PO BID
lisinopril 20 MG tablet
20 mg PO BID
atorvastatin 80 mg Tablet
80 mg PO QPM
Patient Comments:
04/29/24-patient using an old bottle of 40mg (x2td) before he refils his 80mg tablets
nifedipine [Nifedical XL] 30 mg Tablet Extended Release 24hr
30 mg PO TID
furosemide 20 mg tablet
20 mg PO DAILY
Eliquis 5 mg tablet
5 mg PO BID
sildenafil [Viagra] 50 mg Tablet
50 mg PO DAILY PRN (Reason: ED)
melatonin 5 mg Tablet
5 mg PO HS PRN (Reason: sleep)
Referrals:
Venecia Hess MD [Family Provider] -
Interventions
Interventions:
*Risk Screen - Suicide Last Done: 09/28/24 15:23
*General Assessment Last Done: 09/28/24 15:01
*Neglect/Abuse Screening Last Done: 09/28/24 15:01
*ED- Fall Risk Assessment Last Done: 09/28/24 15:01
*ED COVID-19 Vaccine History Last Done: 09/28/24 15:01
ED- Cardiac Assessment Last Done: 09/28/24 16:00
ED- Pulmonary Assessment Last Done: 09/28/24 15:01
Discharge Date and Time
Print Language: ARABIC
[2024-09-28 15:41] LABS: ALT (SGPT) 22 U/L (0-50); AST (SGOT) 21 U/L (17-59); Albumin 4.7 g/dl (3.5-5.0); Alkaline Phosphatase 53 U/L (38-126); Blood Urea Nitrogen 33 mg/dl (9-20); Calcium 9.8 mg/dl (8.4-10.2); Carbon Dioxide 21 mmol/L (22-30); Chloride 104 mmol/L (98-107); Estimated Creatinine Clearance 52 ml/min; Glucose 128 mg/dl (70-99); Magnesium 1.8 mg/dl (1.6-2.3); Sodium 137 mmol/L (135-145); Total Protein 6.9 g/dl (6.3-8.2)
== END 2024-09-28 17:14 | disposition home or self-care (01) ==
LOC: EMR 14:22
PROVIDERS: EMERGENCY PHYSICIAN Student in an Organized Health Care Education/Training Program; FAMILY PHYSICIAN Family Medicine
DX: I48.91 Unspecified atrial fibrillation (principal); I10 Essential (primary) hypertension; E78.00 Pure hypercholesterolemia, unspecified; I25.10 Atherosclerotic heart disease of native coronary artery without angina pectoris; Z79.01 Long term (current) use of anticoagulants
CPT/HCPCS: 92960; 99152; 99285; 80053; 83735; 85025; 93005

== ENCOUNTER 2024-10-01 05:59 | Day surgery (SDC) | payer OTHER, SELFPAY ==
[2024-09-10 07:52] VITALS: BMI 25.8
[2024-09-10 08:19] LABS: % Basophils 0.5 % (0-2); % Eosinophils 1.2 % (0-6); % Immature Granulocytes 0.7 % (0-0.5); % Monocytes 10.8 % (1.7-9.3); % Neutrophils 68.8 % (42.2-75.2); Absolute Eosinophils 0.1 10^3/uL (0-0.7); Absolute Immature Granulocytes 0.1 10^3/uL (0-0.05); Absolute Lymphocytes 1.5 10^3/uL (1.2-3.4); Absolute Monocytes 0.9 10^3/uL (0.1-0.6); Absolute Neutrophils 5.6 10^3/uL (1.4-6.5); Hematocrit 46.2 % (39.0-52.0); Hemoglobin 15.9 g/dL (13.0-18.0); Mean Corp Hgb Conc. 34.4 g/dL (33.0-37.0); Mean Corpuscular Hgb 31.6 pg (27.0-31.0); Mean Corpuscular Volume 91.8 fL (80.0-94.0); Mean Platelet Volume 9.3 fL (7.4-10.4); Nucleated Red Blood Cells % 0 % (-); Platelet Count 213 10^3/uL (130-400); Red Blood Cell Count 5.03 10^6/uL (4.70-6.10); Red Cell Dist. Width 13.4 % (11.5-14.5); White Blood Cell Count 8.1 10^3/uL (4.8-10.8)
[2024-09-10 08:27] LABS: PT 13.7 Sec (11.4-14.6)
[2024-09-10 08:39] LABS: ALT (SGPT) 28 U/L (0-50); AST (SGOT) 20 U/L (17-59); Albumin 4.7 g/dl (3.5-5.0); Alkaline Phosphatase 51 U/L (38-126); Blood Urea Nitrogen 21 mg/dl (9-20); Calcium 9.9 mg/dl (8.4-10.2); Carbon Dioxide 25 mmol/L (22-30); Chloride 107 mmol/L (98-107); Estimated Creatinine Clearance 79 ml/min; Glucose 132 mg/dl (70-99); Magnesium 2.3 mg/dl (1.6-2.3); Potassium 4.1 mmol/L (3.5-5.1); Sodium 143 mmol/L (135-145); Total Protein 7.2 g/dl (6.3-8.2); eGFR > 60.00
[2024-10-01] VITALS (20 sets, daily range): BP systolic 132–179; BP diastolic 83–101; BMI 25.7
[2024-10-01] MEDS: NSS 500 IV (06:57)
--- NOTE | 2024-10-01 07:17 | ITS.CL.ABL ---
[employer] - Ablation
Ablation
Procedure Report:
Primary Equity Manager: Vivienne Jay MD
Procedure Date: 10/01/2024
Patient History:
Patient is a pleasant 61-year-old male with a past medical history significant for hypertension, LVH, mild aortic stenosis, CAD with prior PCI 2020, carotid artery stenosis, chronic back pain, THC use, paroxysmal typical atrial flutter, paroxysmal
atrial fibrillation.
See H&P for complete details.
Indication:
Symptomatic paroxysmal atrial fibrillation
Symptomatic paroxysmal atrial flutter
Arrhythmia Specific History:
Prior Medical Therapies for Rate and Rhythm Control:
X Beta-ashley
[ ] Calcium channel-ashley
[ ] Amiodarone
[ ] Dronederone
[ ] Sotalol
[ ] Flecainide
[ ] Dofetilide
[ ] Options limited by bradycardia
[ ] Options limited by comorbid renal disease
Prior Procedural Therapies for AF/AFL:
X Cardioversion
[ ] Pulmonary Vein Isolation
[ ] Posterior Wall Isolation
X Additional lines (Specify) - CTI RFA
[ ] Surgical Ly-MAZE or PVI (Specify)
Procedure Performed:
X AF ablation procedure (71457) -- includes LA/CS pacing, trans-septal, 3D mapping, + ICE
[ ] +IV drug (96268)
X +Other Arrhythmia (88188) - CTI RFA for typical flutter
X +Other AF Line/ablation (07474) - Posterior wall isolation
Risks and expected recovery has been explained in detail. Alternative options have been explored, and in a shared-decision making fashion we have decided that this was the most appropriate procedure.
Method:
NPO status confirmed. Grounding pad applied. Defibrillator pads applied. Continuous surface ECG, pulse oximetry, and blood pressure were monitored. Procedure was performed under general anesthesia, with anesthesia services.
Both groins were clipped, prepped with Chloraprep, and draped in sterile fashion. Time out was called. Local anesthesia administered with bupivacaine. The right femoral vein was accessed for catheter placement, using ultrasound guidance (saved to
record), micro-puncture needle/wire, and modified seldinger technique. 3 sheaths were placed. The following catheters were used:
X Tacticath SE (D/F Curve) ablation catheter
X Viewflex 9Fr ICE catheter
X Inquiry decapolar 6Fr diagnostic catheter
[ ] CRD Hex 6Fr
[ ] Arctic Front Advance Cryoballoon ([ ]28mm[ ]23mm)
[ ] Achieve Advance mapping catheter ([ ]15mm[ ]20mm)
X FlexCath Contour 10 Fr with PulseSelect PFA Catheter
X Advisor HD Grid Mapping Catheter, SE
[ ] Acuson AcuNav 8 Fr ICE catheter
[ ]Other: [ ]
Intracardiac ultrasound (ICE) was carefully advanced into the right atrium to guide sheath placement over a J-wire, catheter placement, guide trans-septal puncture, identify potential complications, identify anatomic structures and ensure proper
contact between ablation catheter and tissue.
A multipolar catheter were advanced to the coronary sinus. A mapping / ablation catheter was used to record and pace. Three-dimensional electroanatomic mapping was utilized. Ablation catheter was advanced into the RA through the steerable long
sheath. Prior CTI line was mapped and trans-isthmus time was noted to be 60 ms with breakthrough across the CTI line. Catheter ablation in the right atrium was performed. Ablation continued until a line was complete from the tricuspid valve annulus
to the IVC-RA junction. Clockwise and counterclockwise trans-isthmus times were determined, and RA activation patterns confirmed bidirectional block. Interval measurements in NSR were made.
Next, we turned out attention to the AF ablation.
Heparin was given prior to trans-septal puncture. Heparin was given to achieve and maintain a target ACT of 300-400 seconds throughout the procedure.
Trans-septal access was performed under ICE guidance. The trans-septal puncture was performed with a SafeSept wire through a Brockenbrough needle assembly through the steerable sheath. The wire was visualized as it entered the LSPV and system
advanced under ICE guidance and fluoroscopy into the LA. The Brockenbrough needle assembly, SafeSept wire and sheath dilator were removed under negative pressure. LA pressure was measured and recorded.
ICE and 3D mapping was performed to identify relevant cardiac structures. A careful 3D map was created to assess for regions of low-voltage and abnormal electrogram signals using HD grid mapping catheter and PulseSelect catheter. Additional mapping
was performed as outlined below.
Prior to ablation, glycopyrrolate was provided. PulseSelect catheter was advanced over J-wire to the ostium of each vein. Pulmonary vein isolation was performed with ostial and antral lesions in a circumferential manner. Contact was visualized via
EAM, ICE, fluoroscopy, and EGM signals. Due to the small posterior wall and common left pulmonary vein, concern for thin isthmus creation present along posterior wall. Therefore, posterior wall isolation was performed by anchoring the J-wire within
the pulmonary vein and placing the PulseSelect catheter in contact with the posterior wall as visualized by aforementioned methods. Following completion of ablation lesions, a post-ablation voltage/activation map was performed in sinus rhythm.
Entrance and exit block were confirmed for each vein and the posterior wall.
Catheter and sheath were removed from the left atrium and post-ablation intracardiac echo evaluation was consistent with pre-ablation with no changes and no pericardial effusion and there is no left atrial thrombus or left ventricle thrombus seen.
Electroanatomic mapping using the HD grid catheter within the right atrium demonstrated persistent CTI block bidirectionally. Bidirectional transisthmus time remained greater than 170 ms. Electrophysiology study was performed. No induction of
arrhythmias or atrial flutter. Hemostasis was obtained with figure of 8 stitch for each groin and with manual pressure. Protamine was used for reversal.
Estimated Blood Loss
5 mL
Complications
None
Fluoroscopy: 4.4 minutes; 15.07 mGy; DAP 1.80
LA pressure (mean): 7 mmHg (pre), 9 mmHg (post)
Baseline Intervals:
Rhythm: Sinus rhythm
MN: 175 ms
QRS: 117 ms
QT: 444 ms
QTc: 471 ms
A-A: 888 ms
R-R: 888 ms
Post-Procedure Intervals:
MN: 156 ms
QRS: 109 ms
QT: 481 ms
QTc: 489 ms
AVWB: 350 ms
AERP: 600/220 ms
Recommendations
- Bedrest with straight-leg precautions as ordered
- Anticipate same day discharge if patient meeting clinical metrics
- Resume home medications as indicated
- Ok to resume anticoagulation tonight if patient and groin sites stable
- PPI daily for 30 days
- Plan for follow-up in office as scheduled
Tae Reveles DO
Clinical Cardiac Systems Coordinator
cc: Vivienne Jay MD
[2024-10-01 09:30] LABS: ACT-LR - POC 360 Seconds (116-155)
[2024-10-01 09:55] LABS: ACT-LR - POC 339 Seconds (116-155)
[2024-10-01 10:21] LABS: ACT-LR - POC 327 Seconds (116-155)
[2024-10-01 10:52] LABS: ACT-LR - POC 190 Seconds (116-155)
[2024-10-01] MEDS: TYLENOL 650 MG PO (11:41)
[2024-10-01] MEDS: COREG 25 MG PO (15:10)
[2024-10-01] MEDS: ZESTRIL 20 MG PO (15:11)
--- NOTE | 2024-10-01 16:28 | W.PN.UPDATE ---
Update Note
Progress Note Update
69 yo WM s/p PVI (same day). He denies cp, sob, jorje diet, voiding, amb w/o dizziness, EKG SR, R fem site c/d/i no HT. His bp has been rising, he did receive his home lisinopril and carvedilol but continues to be elevated. He was given hydralazine
10mg IV x1, as we do not carry short acting nifedipine which he will take at home tonight. He will resume Eliquis tonight. Activity restrictions reviewed. He will f/u Dr. Jay in 1 mo. He is for d/c home after 530p if groin stable and bp improved.
[2024-10-01] MEDS: APRESOLINE 10 MG IV (16:40)
--- NOTE | 2024-10-01 16:58 | PTCARENOTE ---
Pt hypertensive 160 SBP after stitch removed from right groin at 1450. Treated with Coreg, Lisinopril and Hydralazine.Groin intact, asymptomatic. Will cont to assess and monitor.
== END 2024-10-01 17:45 | disposition home or self-care (01) ==
LOC: CATH 05:59
PROVIDERS: ATTENDING PHYSICIAN Internal Medicine Cardiovascular Disease; FAMILY PHYSICIAN Family Medicine; OTHER PHYSICIAN Internal Medicine Interventional Cardiology
DX: I48.0 Paroxysmal atrial fibrillation (principal); I48.92 Unspecified atrial flutter; I25.10 Atherosclerotic heart disease of native coronary artery without angina pectoris; I11.9 Hypertensive heart disease without heart failure; E78.5 Hyperlipidemia, unspecified; J84.10 Pulmonary fibrosis, unspecified; M48.00 Spinal stenosis, site unspecified; M71.30 Other bursal cyst, unspecified site; M19.90 Unspecified osteoarthritis, unspecified site; G47.00 Insomnia, unspecified; K76.0 Fatty (change of) liver, not elsewhere classified; R73.03 Prediabetes; Z79.899 Other long term (current) drug therapy; Z79.01 Long term (current) use of anticoagulants
CPT/HCPCS: C1732; C1894; C1730; C1769; C1766; C1733; C2630; 36415; 75572; 80053; 83735; 85025; 85347; 85610; 86850; 86900; 86901; 93005; 93655; 93656; 93657; Q9967